=== PATIENT | female | born 1970 | race Caucasian/White ===

== ENCOUNTER 2018-10-28 13:44 | Emergency (ER) | payer MEDICAID ==
[~2018-10-28] VITALS: Ht 147.3 cm; Wt 51.0 kg
[~2018-10-28 13:44] MED LIST: SIMV10TA6 PO; [UNRECOGNIZED DRUG - CODE] PO
[2018-10-28 14:00] VITALS: BP 184/68
[2018-10-29] MEDS ORDERED: LABE300T3 PO (18:10)
[2018-10-29] MEDS ORDERED: ASPI-1393 PO (18:10)
[2018-10-29] MEDS ORDERED: CLON0.3T4 PO (18:10)
[2018-10-29] MEDS ORDERED: HYDR-4135 PO (18:12)
[2018-10-29] MEDS ORDERED: AMOX1TAB16 PO (18:12)
[2018-10-29] MEDS ORDERED: GLIP5TAB12 PO (18:12)
== END 2018-10-28 21:24 | disposition left against medical advice (07) ==
LOC: ER 13:44
DX: R68.89 Other general symptoms and signs (principal); Z53.21 Procedure and treatment not carried out due to patient leaving prior to being seen by health care provider

== ENCOUNTER 2018-10-29 12:36 | Inpatient (IN) | payer MEDICAID ==
[~2018-10-29] VITALS: Ht 137.2 cm; Wt 62.6 kg
[2018-10-29] MEDS ORDERED: GENTAMICIN 80MG PREMIX 100 ML IV ONE (13:00)
[2018-10-29] MEDS ORDERED: VANCOMYCIN 1 G PREMIX 200 ML IV ONE (13:00)
[2018-10-29 14:41] LABS: BASOPHILS % 1.6 % (0.0-2.0); EOSINOPHILS % 1.3 % (0.0-5.0); HEMATOCRIT. 28.4 % (36.0-48.0); HEMOGLOBIN. 9.5 g/dL (12.0-16.0); LYMPHOCYTES % 14.8 % (20.0-50.0); MEAN CORPUSCULAR HEMOGLOBIN 32.7 pg (28.0-32.0); MEAN CORPUSCULAR VOLUME 98.1 fL (81.0-99.0); MEAN PLATELET VOLUME 10.5 fl (7.4-10.4); MONOCYTES % 6.7 % (2.0-8.0); NEUTROPHILS % 75.6 % (40.0-76.0); PLATELET 187 x1000/uL (130-400); RED CELL DISTRIBUTION WIDTH 16.5 % (11.6-14.6)
[2018-10-29] MEDS ORDERED: HYDRALAZINE 20MG/ML VIAL IV ONE (14:45)
[2018-10-29 14:48] LABS: CHLORIDE 94 mEq/L (98-107)
[2018-10-29 14:49] LABS: INR 1.2; PARTIAL THROMBOPLASTIN TIME 31.5 sec (23.4-31.0); PROTHROMBIN TIME 12.1 sec (9.6-11.0)
[2018-10-29 14:56] LABS: PHOSPHORUS 2.3 mg/dL (2.5-4.9)
[2018-10-29 18:00] VITALS: BP 185/75
[2018-10-29] MEDS ORDERED: CLON0.3T4 PO (18:10)
[2018-10-29] MEDS ORDERED: LABE300T3 PO (18:10)
[2018-10-29] MEDS ORDERED: ASPI-1393 PO (18:10)
[2018-10-29] MEDS ORDERED: GLIP5TAB12 PO (18:12)
[2018-10-29] MEDS ORDERED: AMOX1TAB16 PO (18:12)
[2018-10-29] MEDS ORDERED: HYDR-4135 PO (18:12)
[2018-10-29] MEDS ORDERED: DEXTROSE 50% WATER 50ML SYRINGE IV PRN (19:15)
[2018-10-29] MEDS ORDERED: ACETAMINOPHEN 325MG TABLET PO ONE (19:15)
[2018-10-29] MEDS ORDERED: ACETAMINOPHEN 325MG TABLET PO PRN (19:30)
[2018-10-29 20:00] VITALS: BP 179/94
[2018-10-29] MEDS ORDERED: HYDRALAZINE HCL 50MG TABLET PO SCH (21:00)
[2018-10-29] MEDS: BLOOD SUGAR DIAGNOSTIC STRIP TEST SCH (21:00)
[2018-10-29] MEDS: AMOXICILLIN/POTASSIUM CLAVULANATE 875/125MG TAB PO SCH (22:02)
[2018-10-29] MEDS: LABETALOL HCL 300MG TABLET PO SCH (22:03)
[2018-10-29] MEDS: INSULIN LISPRO 100 UNITS/ML SUBCUT SCH (22:04)
[2018-10-29] MEDS: CEFEPIME 2,000 MG in DEXT 5% WATER 100 ML IV SCH (22:43)
[2018-10-29] MEDS: DEXT 5%/0.45% NACL 1000ML 1,000 ML IV SCH (22:45)
[2018-10-30] VITALS: BP 158/88
[2018-10-30 04:00] VITALS: BP 189/85
[2018-10-30] MEDS: BLOOD SUGAR DIAGNOSTIC STRIP TEST SCH ×4 (06:40→21:19)
[2018-10-30] MEDS: CLONIDINE 0.2MG TABLET PO PRN ×2 (06:41→12:54)
[2018-10-30] MEDS: HYDRALAZINE HCL 50MG TABLET PO SCH ×3 (07:41→21:46)
[2018-10-30] MEDS: INSULIN LISPRO 100 UNITS/ML SUBCUT SCH ×4 (07:43→21:47)
[2018-10-30 08:00] VITALS: BP 188/80
[2018-10-30] MEDS ORDERED: POTASSIUM CLAV PO SCH (09:00)
[2018-10-30] MEDS ORDERED: [UNRECOGNIZED DRUG - OTHER] PO SCH (09:00)
[2018-10-30] MEDS ORDERED: AMOXICILLIN PO SCH (09:00)
[2018-10-30] MEDS ORDERED: MEDICATION NOT ON FORMULARY EA (Hydralazine Hcl 50 MG) PO SCH (09:00)
[2018-10-30] MEDS ORDERED: LABETALOL HCL 300 MG PO SCH (09:00)
[2018-10-30] MEDS: AMOXICILLIN/POTASSIUM CLAVULANATE 875/125MG TAB PO SCH (09:42)
[2018-10-30] MEDS: LABETALOL HCL 300MG TABLET PO SCH ×2 (09:42→21:46)
[2018-10-30] MEDS: GLIPIZIDE 5MG TABLET PO SCH (09:42)
[2018-10-30] MEDS: ASPIRIN 81MG EC TABLET PO SCH (09:42)
[2018-10-30] MEDS: ENOXAPARIN 30MG/0.3ML SYR SUBCUT SCH (09:43)
[2018-10-30 12:00] VITALS: BP 188/74
[2018-10-30] MEDS: ONDANSETRON HCL 4MG/2ML INJ IV PRN (15:58)
[2018-10-30 16:00] VITALS: BP 175/71
[2018-10-30] MEDS ORDERED: ENALAPRIL 2.5MG/2ML VIAL 2ML IV PRN (17:00)
[2018-10-30] MEDS ORDERED: VANCOMYCIN 500 MG PREMIX 100 ML IV SCH (18:00)
[2018-10-30] MEDS: HYDRALAZINE 20MG/ML VIAL IV PRN (18:50)
[2018-10-30 20:00] VITALS: BP 150/68
[2018-10-30] MEDS: CEFEPIME 2,000 MG in DEXT 5% WATER 100 ML IV SCH (21:46)
[2018-10-31] VITALS (8 sets, daily range): BP systolic 136–204; BP diastolic 67–98
[2018-10-31] MEDS: DEXT 5%/0.45% NACL 1000ML 1,000 ML IV SCH (00:45)
[2018-10-31] MEDS: HYDRALAZINE HCL 50MG TABLET PO SCH ×3 (04:15→21:09)
[2018-10-31] MEDS: CLONIDINE 0.2MG TABLET PO PRN ×2 (04:15→13:43)
[2018-10-31] MEDS: BLOOD SUGAR DIAGNOSTIC STRIP TEST SCH ×4 (05:44→21:15)
[2018-10-31] MEDS: HYDRALAZINE 20MG/ML VIAL IV PRN (05:54)
[2018-10-31 06:54] LABS: BASOPHILS % 1.3 % (0.0-2.0); HEMATOCRIT. 25.7 % (36.0-48.0); HEMOGLOBIN. 8.6 g/dL (12.0-16.0); LYMPHOCYTES % 19.2 % (20.0-50.0); MEAN CORPUSCULAR HEMOGLOBIN 32.8 pg (28.0-32.0); MEAN CORPUSCULAR VOLUME 97.8 fL (81.0-99.0); MEAN PLATELET VOLUME 10.2 fl (7.4-10.4); MONOCYTES % 6.4 % (2.0-8.0); NEUTROPHILS % 71.1 % (40.0-76.0); PLATELET 165 x1000/uL (130-400); RED BLOOD CELL COUNT 2.63 mill/uL (4.2-5.4); RED CELL DISTRIBUTION WIDTH 17.2 % (11.6-14.6)
[2018-10-31] MEDS: ONDANSETRON HCL 4MG/2ML INJ IV PRN (07:12)
[2018-10-31] MEDS: INSULIN LISPRO 100 UNITS/ML SUBCUT SCH ×4 (08:10→21:11)
[2018-10-31] MEDS: ENOXAPARIN 30MG/0.3ML SYR SUBCUT SCH (09:00)
[2018-10-31] MEDS: GLIPIZIDE 5MG TABLET PO SCH (10:03)
[2018-10-31] MEDS: ASPIRIN 81MG EC TABLET PO SCH (10:03)
[2018-10-31] MEDS: LABETALOL HCL 300MG TABLET PO SCH ×2 (10:04→21:15)
[2018-10-31] MEDS: CEFEPIME 2,000 MG in DEXT 5% WATER 100 ML IV SCH (22:38)
[2018-11-01] VITALS: BP 175/69
[2018-11-01] MEDS: DEXT 5%/0.45% NACL 1000ML 1,000 ML IV SCH (00:13)
[2018-11-01] MEDS: CLONIDINE 0.2MG TABLET PO PRN ×3 (00:17→22:55)
[2018-11-01 04:00] VITALS: BP 182/67
[2018-11-01] MEDS: HYDRALAZINE HCL 50MG TABLET PO SCH ×3 (05:19→20:40)
[2018-11-01] MEDS: BLOOD SUGAR DIAGNOSTIC STRIP TEST SCH ×4 (06:35→20:52)
[2018-11-01] MEDS: INSULIN LISPRO 100 UNITS/ML SUBCUT SCH ×4 (07:50→20:52)
[2018-11-01] MEDS ORDERED: LIDOCAINE HCL 1% 20ML VIAL (Pyxis) INJ ONE (07:59)
[2018-11-01 08:00] VITALS: BP 206/76
[2018-11-01] MEDS ORDERED: BUPIVACAINE HCL/PF 0.5% (5MG/ML) 10ML ONE (08:00)
[2018-11-01] MEDS ORDERED: NORMAL SALINE 0.9% 10 ML SYR ONE (08:00)
[2018-11-01] MEDS ORDERED: BACITRACIN 50,000 UNITS/VIAL ONE (08:00)
[2018-11-01] MEDS: LABETALOL HCL 300MG TABLET PO SCH ×2 (08:14→20:41)
[2018-11-01] MEDS ORDERED: FENTANYL CITRATE/PF 50MCG/ML 2ML VIAL ONE (08:53)
[2018-11-01] MEDS ORDERED: MIDAZOLAM HCL 2 MG/2 ML VIAL ONE (08:54)
[2018-11-01] MEDS ORDERED: PROPOFOL 200MG/20ML VIAL IV ONE (08:54)
[2018-11-01] MEDS: ASPIRIN 81MG EC TABLET PO SCH (09:00)
[2018-11-01] MEDS: GLIPIZIDE 5MG TABLET PO SCH (09:00)
[2018-11-01] MEDS: ENOXAPARIN 30MG/0.3ML SYR SUBCUT SCH (09:00)
[2018-11-01] MEDS ORDERED: THROMBIN (BOVINE) 5000 UNITS/VIAL TOP ONE (09:36)
[2018-11-01] MEDS ORDERED: HYDRALAZINE 20MG/ML VIAL ONE (09:45)
[2018-11-01] MEDS ORDERED: BACITRACIN 15GM TUBE TOP ONE (09:47)
[2018-11-01] MEDS ORDERED: LIDOCAINE HCL/PF 1% 10 MG/ML 5ML VIAL ONE (09:56)
[2018-11-01 12:43] VITALS: BP 183/71
[2018-11-01] MEDS: HYDRALAZINE 20MG/ML VIAL IV PRN (13:28)
[2018-11-01 16:00] VITALS: BP 155/59
[2018-11-01 20:00] VITALS: BP 183/73
[2018-11-01] MEDS: CEFEPIME 500 MG in DEXTROSE 5% WATER 50 ML IV SCH (21:16)
[2018-11-01] MEDS: ONDANSETRON HCL 4MG/2ML INJ IV PRN (23:15)
[2018-11-02] VITALS: BP 197/81
[2018-11-02 04:00] VITALS: BP 140/71
[2018-11-02] MEDS: HYDRALAZINE HCL 50MG TABLET PO SCH (06:02)
[2018-11-02] MEDS: DEXT 5%/0.45% NACL 1000ML 1,000 ML IV SCH (06:03)
[2018-11-02] MEDS: BLOOD SUGAR DIAGNOSTIC STRIP TEST SCH ×4 (06:38→20:16)
[2018-11-02 07:34] LABS: BASOPHILS % 1.2 % (0.0-2.0); EOSINOPHILS % 1.6 % (0.0-5.0); LYMPHOCYTES % 19.5 % (20.0-50.0); MEAN CORPUSCULAR HEMOGLOBIN 33.4 pg (28.0-32.0); MEAN CORPUSCULAR VOLUME 98.3 fL (81.0-99.0); MEAN PLATELET VOLUME 10.4 fl (7.4-10.4); MONOCYTES % 7.5 % (2.0-8.0); NEUTROPHILS % 70.2 % (40.0-76.0); PLATELET 144 x1000/uL (130-400); RED BLOOD CELL COUNT 2.19 mill/uL (4.2-5.4); RED CELL DISTRIBUTION WIDTH 17.4 % (11.6-14.6)
[2018-11-02] MEDS: ONDANSETRON HCL 4MG/2ML INJ IV PRN (07:44)
[2018-11-02] MEDS: INSULIN LISPRO 100 UNITS/ML SUBCUT SCH ×4 (07:50→20:16)
[2018-11-02 08:00] VITALS: BP 186/50
[2018-11-02 08:14] LABS: HEMATOCRIT. 21.5 % (36.0-48.0); HEMOGLOBIN. 7.3 g/dL (12.0-16.0)
[2018-11-02] MEDS: HYDRALAZINE 20MG/ML VIAL IV PRN ×3 (08:28→16:47)
[2018-11-02] MEDS: ASPIRIN 81MG EC TABLET PO SCH (09:00)
[2018-11-02] MEDS: ENOXAPARIN 30MG/0.3ML SYR SUBCUT SCH (09:00)
[2018-11-02 12:00] VITALS: BP 180/65
[2018-11-02] MEDS: CLONIDINE 0.2MG TABLET PO PRN (14:02)
[2018-11-02] MEDS: HYDRALAZINE HCL 100MG TABLET PO SCH ×2 (14:02→21:03)
[2018-11-02] MEDS: GLIPIZIDE 5MG TABLET PO SCH (14:02)
[2018-11-02] MEDS: LABETALOL HCL 300MG TABLET PO SCH ×2 (14:02→21:03)
[2018-11-02 16:00] VITALS: BP 186/61
[2018-11-02 20:00] VITALS: BP 200/77
[2018-11-02] MEDS: CEFEPIME 500 MG in DEXTROSE 5% WATER 50 ML IV SCH (20:36)
[2018-11-02] MEDS ORDERED: EPOETIN ALFA 10000UNITS/ML VIAL SUBCUT SCH (21:00)
[2018-11-03] VITALS (14 sets, daily range): BP systolic 21–213; BP diastolic 71–88
[2018-11-03] MEDS: DEXT 5%/0.45% NACL 1000ML 1,000 ML IV SCH (00:09)
[2018-11-03] MEDS: HYDRALAZINE 20MG/ML VIAL IV PRN ×2 (00:24→09:10)
[2018-11-03] MEDS: HYDRALAZINE HCL 100MG TABLET PO SCH ×2 (06:22→13:27)
[2018-11-03] MEDS: BLOOD SUGAR DIAGNOSTIC STRIP TEST SCH ×3 (06:22→17:40)
[2018-11-03 06:57] LABS: INR 1.4; PARTIAL THROMBOPLASTIN TIME 35.2 sec (23.4-31.0); PROTHROMBIN TIME 14.6 sec (9.6-11.0)
[2018-11-03] MEDS ORDERED: LIDOCAINE HCL 1% 20ML VIAL (Pyxis) INJ ONE (07:32)
[2018-11-03] MEDS ORDERED: SODIUM BICARBONATE 4% (2.4MEQ) 5ML VIAL IV ONE (07:32)
[2018-11-03] MEDS: INSULIN LISPRO 100 UNITS/ML SUBCUT SCH ×3 (07:47→17:40)
[2018-11-03] MEDS ORDERED: FENTANYL CITRATE/PF 50MCG/ML 2ML VIAL ONE (07:59)
[2018-11-03] MEDS ORDERED: FENTANYL CITRATE/PF 50MCG/ML 2ML VIAL IV ONE (08:05)
[2018-11-03] MEDS: GLIPIZIDE 5MG TABLET PO SCH (09:10)
[2018-11-03] MEDS: LABETALOL HCL 300MG TABLET PO SCH (09:11)
[2018-11-03] MEDS: ASPIRIN 81MG EC TABLET PO SCH (09:11)
[2018-11-03] MEDS: ENOXAPARIN 30MG/0.3ML SYR SUBCUT SCH (09:12)
[2018-11-03] MEDS: ONDANSETRON HCL 4MG/2ML INJ IV PRN (13:27)
== END 2018-11-03 17:35 | disposition home health service (06) | DRG 182 ==
LOC: ER 12:36 → 7WST 15:13 → EDBEDREQ 15:29 → ENRESERV 17:07 → 7WST 21:38 → 6WST 10-31 19:41
PROVIDERS: ADMIT Internal Medicine; ATTEND Internal Medicine
PROC: 5A1D70Z Performance of Urinary Filtration, Intermittent, Less than 6 Hours Per Day (ICD-10-PCS; 2018-10-30)
PROC: 05PY0JZ Removal of Synthetic Substitute from Upper Vein, Open Approach (ICD-10-PCS; 2018-11-01)
PROC: 03PY0JZ Removal of Synthetic Substitute from Upper Artery, Open Approach (ICD-10-PCS; 2018-11-01)
PROC: 02P Heart and Great Vessels, Removal (ICD-10-PCS; 2018-11-01)
PROC: 5A1D70Z Performance of Urinary Filtration, Intermittent, Less than 6 Hours Per Day (ICD-10-PCS; 2018-11-01)
PROC: 0JH63XZ Insertion of Tunneled Vascular Access Device into Chest Subcutaneous Tissue and Fascia, Percutaneous Approach (ICD-10-PCS; principal; 2018-11-03)
PROC: B5181ZA Fluoroscopy of Superior Vena Cava using Low Osmolar Contrast, Guidance (ICD-10-PCS; 2018-11-03)
PROC: B548ZZA Ultrasonography of Superior Vena Cava, Guidance (ICD-10-PCS; 2018-11-03)
PROC: 5A1D70Z Performance of Urinary Filtration, Intermittent, Less than 6 Hours Per Day (ICD-10-PCS; 2018-11-03)
DX: T82.7XXA Infection and inflammatory reaction due to other cardiac and vascular devices, implants and grafts, initial encounter (principal); A40.8 Other streptococcal sepsis; E11.22 Type 2 diabetes mellitus with diabetic chronic kidney disease; I12.0 Hypertensive chronic kidney disease with stage 5 chronic kidney disease or end stage renal disease; N18.6 End stage renal disease; E11.319 Type 2 diabetes mellitus with unspecified diabetic retinopathy without macular edema; E78.5 Hyperlipidemia, unspecified; Z99.2 Dependence on renal dialysis; I51.7 Cardiomegaly; D64.9 Anemia, unspecified; H54.7 Unspecified visual loss; L02.414 Cutaneous abscess of left upper limb; Y84.1 Kidney dialysis as the cause of abnormal reaction of the patient, or of later complication, without mention of misadventure at the time of the procedure; Y92.89 Other specified places as the place of occurrence of the external cause
CPT/HCPCS: 36415; 36558; 36589; 71045; 77001; 80048; 80202; 82962; 83605; 83735; 84100; 84145; 84484; 87070; 87075; 88304; 93005; 93306; 93970; 96365; 96375; 99152; 99153; 99285; C1750; C1757; C1769; J0360; J0692; J0885; J1580; J1642; J1650; J1815; J2250; J2405; J2704; J3010; J3370; J3490; J7050; J7060; G0500

== ENCOUNTER 2018-11-05 10:13 | Emergency (ER) | payer MEDICAID ==
[~2018-11-05] VITALS: Ht 175.3 cm; Wt 58.0 kg
[~2018-11-05 10:13] MED LIST changes: +AMOX1TAB16 PO; +ASPI-1393 PO; +GLIP5TAB12 PO; +HYDR-4135 PO; +LABE300T3 PO; -SIMV10TA6 PO; -[UNRECOGNIZED DRUG - CODE] PO
[2018-11-05 15:11] VITALS: BP 190/88
== END 2018-11-05 15:14 | disposition home or self-care (01) ==
LOC: ER 10:27
DX: T82.838A Hemorrhage due to vascular prosthetic devices, implants and grafts, initial encounter (principal); Y82.8 Other medical devices associated with adverse incidents; Y92.89 Other specified places as the place of occurrence of the external cause; I12.0 Hypertensive chronic kidney disease with stage 5 chronic kidney disease or end stage renal disease; N18.6 End stage renal disease; Z99.2 Dependence on renal dialysis
CPT/HCPCS: 99284

== ENCOUNTER 2018-11-11 19:04 | Emergency (ER) | payer MEDICAID ==
[~2018-11-11] VITALS: Ht 144.8 cm; Wt 51.0 kg
[2018-11-11 21:59] LABS: BASOPHILS % 2.3 % (0.0-2.0); EOSINOPHILS % 1.5 % (0.0-5.0); HEMATOCRIT. 28.2 % (36.0-48.0); HEMOGLOBIN. 9.3 g/dL (12.0-16.0); LYMPHOCYTES % 26.4 % (20.0-50.0); MEAN CORPUSCULAR HEMOGLOBIN 32.9 pg (28.0-32.0); MEAN CORPUSCULAR VOLUME 99.7 fL (81.0-99.0); MEAN PLATELET VOLUME 10.2 fl (7.4-10.4); MONOCYTES % 11.5 % (2.0-8.0); NEUTROPHILS % 58.3 % (40.0-76.0); PLATELET 162 x1000/uL (130-400); RED BLOOD CELL COUNT 2.83 mill/uL (4.2-5.4); RED CELL DISTRIBUTION WIDTH 17.4 % (11.6-14.6)
[2018-11-11 22:04] LABS: CHLORIDE 100 mEq/L (98-107)
[2018-11-11 22:09] LABS: PARTIAL THROMBOPLASTIN TIME 27.4 sec (23.4-31.0); PROTHROMBIN TIME 10.8 sec (9.6-11.0)
[2018-11-11 22:11] VITALS: BP 174/79
== END 2018-11-11 22:54 | disposition home or self-care (01) ==
LOC: ER 20:21
DX: D64.89 Other specified anemias (principal); I12.0 Hypertensive chronic kidney disease with stage 5 chronic kidney disease or end stage renal disease; E11.22 Type 2 diabetes mellitus with diabetic chronic kidney disease; N18.6 End stage renal disease; Z99.2 Dependence on renal dialysis; Z79.899 Other long term (current) drug therapy
CPT/HCPCS: 36415; 86850; 86900; 99283

== ENCOUNTER 2019-01-10 11:02 | Day surgery (SDC) | payer MEDICAID ==
[~2019-01-10] VITALS: Ht 139.7 cm; Wt 51.7 kg
[~2019-01-10 11:02] MED LIST changes: +BALANCED SALT IRRIG SOLN COMB1 500ML OP ONE; +CYCLOPENTOLATE HCL 1% OPHTH DROPS 2ML RIGHTEYE ONE; +CYCLOPENTOLATE HCL 1% OPHTH DROPS 2ML RIGHTEYE SCH; +PHENYLEPHRINE HCL 10% OPHTH DROPS 5ML RIGHTEYE ONE; +PHENYLEPHRINE HCL 10% OPHTH DROPS 5ML RIGHTEYE SCH; +TROPICAMIDE 1% OPHTH DROPS 15ML RIGHTEYE ONE; +TROPICAMIDE 1% OPHTH DROPS 15ML RIGHTEYE SCH
[2019-01-10] MEDS ORDERED: HYALURONATE SODIUM 14 MG/ML 0.85ML SYRINGE IO ONE (12:43)
[2019-01-10] MEDS ORDERED: TRYPAN BLUE 0.5 ML DISP.SYRIN IO ONE (12:46)
[2019-01-10] MEDS ORDERED: FENTANYL CITRATE/PF 50MCG/ML 2ML VIAL ONE (12:55)
[2019-01-10] MEDS ORDERED: MIDAZOLAM HCL 2 MG/2 ML VIAL ONE (12:56)
[2019-01-10] MEDS ORDERED: HEPARIN 1000 UNITS/ML 10ML ONE (13:24)
== END 2019-01-10 14:45 | disposition home or self-care (01) ==
LOC: OR 11:02
PROVIDERS: ATTEND Ophthalmology
DX: E11.36 Type 2 diabetes mellitus with diabetic cataract (principal); E11.22 Type 2 diabetes mellitus with diabetic chronic kidney disease; E11.65 Type 2 diabetes mellitus with hyperglycemia; H25.21 Age-related cataract, morgagnian type, right eye; I12.0 Hypertensive chronic kidney disease with stage 5 chronic kidney disease or end stage renal disease; N18.6 End stage renal disease; Z99.2 Dependence on renal dialysis; Z71.82 Exercise counseling; Z98.890 Other specified postprocedural states; Z82.49 Family history of ischemic heart disease and other diseases of the circulatory system; Z83.3 Family history of diabetes mellitus; Z79.82 Long term (current) use of aspirin; Z79.899 Other long term (current) drug therapy
CPT/HCPCS: 66982; 82962; J1644; J2250; J3010; J3490; Q9957; V2632

== ENCOUNTER 2019-04-26 07:00 | Inpatient (IN) | payer MEDICAID ==
[~2019-04-26] VITALS: Ht 144.8 cm; Wt 64.9 kg
[~2019-04-26 07:00] MED LIST changes: -ASPI-1393 PO; +ASPI-1497 PO; -BALANCED SALT IRRIG SOLN COMB1 500ML OP ONE; -CYCLOPENTOLATE HCL 1% OPHTH DROPS 2ML RIGHTEYE ONE; -CYCLOPENTOLATE HCL 1% OPHTH DROPS 2ML RIGHTEYE SCH; -PHENYLEPHRINE HCL 10% OPHTH DROPS 5ML RIGHTEYE ONE; -PHENYLEPHRINE HCL 10% OPHTH DROPS 5ML RIGHTEYE SCH; -TROPICAMIDE 1% OPHTH DROPS 15ML RIGHTEYE ONE; -TROPICAMIDE 1% OPHTH DROPS 15ML RIGHTEYE SCH
[2019-04-26 07:48] LABS: BASOPHILS % 1.4 % (0.0-2.0); EOSINOPHILS % 4.4 % (0.0-5.0); HEMATOCRIT. 36.2 % (36.0-48.0); HEMOGLOBIN. 12.4 g/dL (12.0-16.0); LYMPHOCYTES % 13.5 % (20.0-50.0); MEAN CORPUSCULAR HEMOGLOBIN 33.7 pg (28.0-32.0); MEAN CORPUSCULAR VOLUME 98.1 fL (81.0-99.0); MEAN PLATELET VOLUME 10.1 fl (7.4-10.4); NEUTROPHILS % 73.7 % (40.0-76.0); PLATELET 115 x1000/uL (130-400); RED BLOOD CELL COUNT 3.69 mill/uL (4.2-5.4); RED CELL DISTRIBUTION WIDTH 17.6 % (11.6-14.6)
[2019-04-26 07:51] LABS: CHLORIDE 98 mEq/L (98-107)
[2019-04-26] MEDS ORDERED: HYDRALAZINE 20MG/ML VIAL IV ONE (08:45)
[2019-04-26] MEDS ORDERED: NIFEDIPINE XL 60MG TAB PO NR (11:15)
[2019-04-26] MEDS ORDERED: ASPIRIN 81MG TABLET PO NR (11:15)
[2019-04-26 11:41] LABS: LDL CHOLESTEROL 62 mg/dL (5-100)
[2019-04-26 11:42] LABS: HDL CHOLESTEROL 66 mg/dL (40-59)
[2019-04-26] MEDS ORDERED: DEXTROSE 50% WATER 50ML SYRINGE IV PRN ×2 (12:30→16:30)
[2019-04-26] MEDS ORDERED: BLOOD SUGAR DIAGNOSTIC STRIP TEST SCH (13:00)
[2019-04-26] MEDS ORDERED: INSULIN LISPRO 100 UNITS/ML SUBCUT SCH (13:20)
[2019-04-26] MEDS ORDERED: CLON0.3T PO (16:28)
[2019-04-26] MEDS ORDERED: AMLO10TA80 PO (16:28)
[2019-04-26] MEDS ORDERED: ONDANSETRON HCL 4MG/2ML INJ IV PRN (16:30)
[2019-04-26] MEDS ORDERED: DOCUSATE SODIUM 100MG CAPSULE PO PRN (16:30)
[2019-04-26] MEDS ORDERED: ACETAMINOPHEN 325MG TABLET PO PRN (16:30)
[2019-04-26 17:04] VITALS: BP 183/71
[2019-04-26] MEDS ORDERED: CLONIDINE 0.1MG TABLET PO PRN (17:30)
[2019-04-26] MEDS: BLOOD SUGAR DIAGNOSTIC STRIP TEST SCH ×2 (17:40→21:18)
[2019-04-26] MEDS: ENOXAPARIN 30MG/0.3ML SYR SUBCUT SCH (18:05)
[2019-04-26] MEDS: INSULIN LISPRO 100 UNITS/ML SUBCUT SCH ×2 (19:05→21:00)
[2019-04-26 20:00] VITALS: BP 189/79
[2019-04-26] MEDS: HYDRALAZINE HCL 50MG TABLET PO SCH (21:25)
[2019-04-26] MEDS: NIFEDIPINE XL 60MG TAB PO SCH (21:26)
[2019-04-26 23:33] LABS: CREATINE KINASE 53 IU/L (26-192); CREATINE KINASE MB FRACTION < 1.0 ng/mL (0.5-3.6)
[2019-04-27] VITALS: BP 156/69
[2019-04-27 04:00] VITALS: BP 127/57
[2019-04-27] MEDS: HYDRALAZINE HCL 50MG TABLET PO SCH ×2 (05:20→14:00)
[2019-04-27 07:04] LABS: BASOPHILS % 1.9 % (0.0-2.0); EOSINOPHILS % 3.5 % (0.0-5.0); HEMATOCRIT. 37.3 % (36.0-48.0); HEMOGLOBIN. 12.8 g/dL (12.0-16.0); LYMPHOCYTES % 22.9 % (20.0-50.0); MEAN CORPUSCULAR HEMOGLOBIN 34.2 pg (28.0-32.0); MEAN CORPUSCULAR VOLUME 99.5 fL (81.0-99.0); MEAN PLATELET VOLUME 11.3 fl (7.4-10.4); MONOCYTES % 9.1 % (2.0-8.0); NEUTROPHILS % 62.6 % (40.0-76.0); PLATELET 121 x1000/uL (130-400); RED BLOOD CELL COUNT 3.75 mill/uL (4.2-5.4); RED CELL DISTRIBUTION WIDTH 16.7 % (11.6-14.6)
[2019-04-27 07:13] LABS: CHLORIDE 96 mEq/L (98-107)
[2019-04-27 07:26] LABS: CREATINE KINASE 64 IU/L (26-192)
[2019-04-27 07:28] LABS: CREATINE KINASE MB FRACTION < 1.0 ng/mL (0.5-3.6)
[2019-04-27] MEDS: BLOOD SUGAR DIAGNOSTIC STRIP TEST SCH ×3 (07:40→17:38)
[2019-04-27 08:00] VITALS: BP 143/66
[2019-04-27] MEDS: INSULIN LISPRO 100 UNITS/ML SUBCUT SCH ×3 (08:47→17:51)
[2019-04-27] MEDS: NIFEDIPINE XL 60MG TAB PO SCH (08:49)
[2019-04-27] MEDS ORDERED: ASPIRIN 81MG TABLET PO SCH (09:00)
[2019-04-27] MEDS ORDERED: NIFEDIPINE XL 60MG TAB PO SCH (09:00)
[2019-04-27 12:00] VITALS: BP 123/68
[2019-04-27] MEDS ORDERED: ALPRAZOLAM 0.25 MG TABLET PO SCH (13:30)
[2019-04-27 16:00] VITALS: BP 105/56
[2019-04-27] MEDS: ENOXAPARIN 30MG/0.3ML SYR SUBCUT SCH (17:51)
[2019-04-27 18:31] VITALS: BP 105/56
== END 2019-04-27 19:25 | disposition home or self-care (01) | DRG 194 ==
LOC: ER 07:00 → 7WST 08:35 → EDBEDREQTM 08:52 → EDBEDREQ 08:52 → ENRESERV 14:14
PROVIDERS: ADMIT Internal Medicine; ATTEND Internal Medicine
DX: I13.2 Hypertensive heart and chronic kidney disease with heart failure and with stage 5 chronic kidney disease, or end stage renal disease (principal); D69.6 Thrombocytopenia, unspecified; E11.22 Type 2 diabetes mellitus with diabetic chronic kidney disease; I27.20 Pulmonary hypertension, unspecified; E44.0 Moderate protein-calorie malnutrition; E87.1 Hypo-osmolality and hyponatremia; N18.6 End stage renal disease; F41.9 Anxiety disorder, unspecified; I50.23 Acute on chronic systolic (congestive) heart failure; I42.9 Cardiomyopathy, unspecified; Z83.3 Family history of diabetes mellitus; Z99.2 Dependence on renal dialysis; Z82.49 Family history of ischemic heart disease and other diseases of the circulatory system; Z79.899 Other long term (current) drug therapy; Z68.30 Body mass index [BMI] 30.0-30.9, adult
CPT/HCPCS: 36415; 71045; 80048; 80053; 80061; 82550; 82553; 82962; 84439; 84443; 84484; 85025; 93005; 93306; 93970; 96374; 99285; J0360; J1650; J1815; J2405

== ENCOUNTER 2019-08-22 14:57 | Emergency (ER) | payer MEDICAID ==
[~2019-08-22] VITALS: Ht 152.4 cm; Wt 48.0 kg
[~2019-08-22 14:57] MED LIST changes: +AMLO10TA80 PO; +CLON0.3T PO
[2019-08-22 15:53] LABS: BASOPHILS % 1.2 % (0.0-2.0); EOSINOPHILS % 3.2 % (0.0-5.0); HEMATOCRIT. 26.2 % (36.0-48.0); HEMOGLOBIN. 8.9 g/dL (12.0-16.0); LYMPHOCYTES % 23.1 % (20.0-50.0); MEAN CORPUSCULAR HEMOGLOBIN 34.5 pg (28.0-32.0); MEAN CORPUSCULAR VOLUME 101.9 fL (81.0-99.0); MEAN PLATELET VOLUME 9.6 fl (7.4-10.4); MONOCYTES % 8.8 % (2.0-8.0); NEUTROPHILS % 63.7 % (40.0-76.0); PLATELET 127 x1000/uL (130-400); RED BLOOD CELL COUNT 2.57 mill/uL (4.2-5.4)
[2019-08-22 15:57] LABS: CHLORIDE 105 mEq/L (98-107)
[2019-08-22 16:00] LABS: PARTIAL THROMBOPLASTIN TIME 28.7 sec (23.4-31.0); PROTHROMBIN TIME 10.5 sec (9.6-11.0)
[2019-08-22 16:12] VITALS: BP 150/73
[2019-08-22 17:41] LABS: PLATELET ESTIMATE DECREASED
== END 2019-08-22 17:15 | disposition home or self-care (01) ==
LOC: ER 14:57
DX: D64.9 Anemia, unspecified (principal); I12.0 Hypertensive chronic kidney disease with stage 5 chronic kidney disease or end stage renal disease; E11.22 Type 2 diabetes mellitus with diabetic chronic kidney disease; N18.6 End stage renal disease; Z99.2 Dependence on renal dialysis; Z98.890 Other specified postprocedural states; Z79.899 Other long term (current) drug therapy; Z79.82 Long term (current) use of aspirin
CPT/HCPCS: 36415; 80053; 85025; 86850; 86900; 93005; 99284

== ENCOUNTER → 2022-07-14 | Day surgery (SDC) | payer MEDICAID ==
[~2022-07-14] VITALS: Ht 139.7 cm; Wt 63.5 kg
[~2022-07-14] MED LIST changes: +ATOR10TA69 PO; +BUPIVACAINE HCL/PF 0.5% (5MG/ML) 10ML ONE; +CEFAZOLIN SODIUM 1000MG/VIAL ONE; +CLINDAMYCIN 900 MG PREMIX 50 ML IV ONE; +CYAN-33 PO; +DULA1.5P SQ; +FAMO20TA8 PO; +HYDROCODONE/ACETAMINOPHEN 5/325MG TABLET PO SCH; +HYDROMORPHONE HCL/PF 2MG/ML CPJ IV PRN; +INSU100I24 SQ; +INSU100I32 SQ; -LABE300T3 PO; +LABE300T36 PO; +LABETALOL 5MG/ML SYR 20 MG/4 ML SYRINGE IV PRN; +MAGN400T26 PO; +MEPERIDINE HCL/PF 25MG/ML CPJ IV PRN; +MULT-1116 PO; +ONDANSETRON HCL 4MG/2ML INJ IV PRN; +PRED5TAB PO; +SKIN ADHESIVE 0.7 GM EA TOP ONE; +SODIUM CHLORIDE 0.9% 1,000 ML IV SCH
== END | disposition home or self-care (01) ==
LOC: CANPRESDC → OR 05:56
PROVIDERS: ATTEND Surgery
DX: K80.10 Calculus of gallbladder with chronic cholecystitis without obstruction (principal); I12.0 Hypertensive chronic kidney disease with stage 5 chronic kidney disease or end stage renal disease; E11.22 Type 2 diabetes mellitus with diabetic chronic kidney disease; N18.6 End stage renal disease; E78.00 Pure hypercholesterolemia, unspecified; Z79.84 Long term (current) use of oral hypoglycemic drugs; Z79.899 Other long term (current) drug therapy; Z98.890 Other specified postprocedural states; Z79.82 Long term (current) use of aspirin; Z88.0 Allergy status to penicillin; Z82.49 Family history of ischemic heart disease and other diseases of the circulatory system; Z20.822 Contact with and (suspected) exposure to COVID-19
CPT/HCPCS: 47562; 82962; 87426; 88304; C9803; J0690; J3490